=== PATIENT | male | born 1990 | race Caucasian/White ===

== ENCOUNTER 2017-02-22 11:23 | Emergency (ER) | payer OTHER ==
--- NOTE | 2017-02-22 11:38 | EDM.PDOC ---
ED HPI GENERAL MEDICAL PROBLEM - General Chief Complaint: Lower Extremity Injury/Pain Stated Complaint: LEFT ANKLE PAIN Time Seen by Provider: 02/22/17 11:37 Source of Information: Reports: Patient History Limitations: Reports: No Limitations - History of Present Illness INITIAL COMMENTS - FREE TEXT/NARRATIVE: HISTORY AND PHYSICAL: [] 26-year-old male presenting with left ankle pain History of Present Illness: [place] and felt his ankle pop. Presents with Segundo wraps to his ankle[] Review of Systems: As per history of present illness and below otherwise all systems reviewed and negative. Past medical history: As per history of present illness and as reviewed below otherwise noncontributory. Surgical history: As per history of present illness and as reviewed below otherwise noncontributory. Social history: No reported history of drug or alcohol abuse. Family history: As per history of present illness and as reviewed below otherwise noncontributory. Physical exam: Answer questions appropriately. He can in full sentences no shortness of breath. HEENT: Atraumatic, normocehpalic, pupils reactive, negative for conjunctival pallor or scleral icterus, mucous membranes moist, throat clear, neck supple, nontender, trachea midline. Lungs: Clear to auscultation, breath sounds equal bilaterally, chest non tender. Heart: S1S2, regular, negative for clicks, rubs, or JVD. Abdomen: Soft, nondistended, nontender. Negative for masses or hepatossplenmegaly. Negative for costovertebral tenderness. Pelvis: Stable nontender. Genitourinary: Deferred. Rectal: Deferred Extremities: Left ankle with erythema and edema tender to touch laterally along the malleolus. There is some mild ecchymosis to the lower medial ankle/ foot area Mild heat radiating, he did put ice on it this morning., negative for cords or calf pain. Neurovascular unremarkable. Neuro: Awake, alert, oriented. Cranial nerves II through XII unremarkable. Cerebellum unremarkable. Motor and sensory unremarkable throughout. Exam nonfocal. Discussed x-ray results with the patient and is present no fractures are noted Diagnostics: [X-ray left ankle] Therapeutics: [Cam Walker boot Crutches] Impression: [Ankle sprain with ligamental injury] Plan: [Discharged to home Minimal weightbearing for 24 hours Elevate and ice Ice to be on 20 minutes off 20 minutes a towel in between the ice in your foot Referral has been made to Dr. Carey Newell] Definitive disposition and diagnosis as appropriate pending reevaluation and review of above. left foot Pain Score (Numeric/FACES): 6 - Related Data Allergies Allergy/AdvReac Type Severity Reaction Status Date / Time No Known Allergies Allergy Verified 02/22/17 11:39 Home Meds: Home Meds . [No Known Home Meds] 02/22/17 [History] Review of Systems - Review of Systems Review Of Systems: ROS reveals no pertinent complaints other than HPI. ED EXAM, GENERAL - Physical Exam Exam: See Below (The dictation) Course - Vital Signs Last Recorded V/S: Last Vital Signs Temp 36.4 C 02/22/17 11:40 Pulse 95 02/22/17 11:40 Resp 18 02/22/17 11:40 BP 141/78 H 02/22/17 11:40 Pulse Ox 98 02/22/17 11:40 - Orders/Labs/Meds Orders: Active Orders 24 hr Category Date Time Status Ankle Min 3V Lt [CR] Stat Exams 02/22/17 11:37 Taken DME for Discharge [COMM] Stat Oth 02/22/17 12:38 Ordered Departure - Departure Time of Disposition: 12:40 Disposition: Home, Self-Care 01 Condition: Good Clinical Impression: Ankle sprain Qualifiers: Encounter type: initial encounter Involved ligament of ankle: unspecified ligament Laterality: left Qualified Code(s): S93.402A - Sprain of unspecified ligament of left ankle, initial encounter - Discharge Information Instructions: Ankle Sprain, [id number]-[id number], Crutch Use, Vgvj-ed-[id number] Referrals: PCP,None [Primary Care Provider] - Forms: ED Department Discharge Additional Instructions: The following information is given to patients seen in the emergency department who are being discharged to home. This information is to outline your options for follow-up care. We provide all patients seen in our emergency department with a follow-up referral. The need for follow-up, as well as the timing and circumstances, are variable depending upon the specifics of your emergency department visit. If you don't have a primary care physician on staff, we will provide you with a referral. We always advise you to contact your personal physician following an emergency department visit to inform them of the circumstance of the visit and for follow-up with them and/or the need for any referrals to a consulting specialist. The emergency department will also refer you to a specialist when appropriate. This referral assures that you have the opportunity for followup care with a specialist. All of these measure are taken in an effort to provide you with optimal care, which includes your followup. Under all circumstances we always encourage you to contact your private physician who remains a resource for coordinating your care. When calling for followup care, please make the office aware that this follow-up is from your recent emergency room visit. If for any reason you are refused follow-up, please contact the [facility] emergency department at and asked to speak to the emergency department charge nurse. Referral has been made for you follow-up with Dr. Carey Newell orthopedist [facility] [address], [address] [place] [address] Elevate and ice your ankle Ice on 20 minutes off 20 minutes with Tylenol in between to avoid freezing your skin Qcqw-ugq-ksrccar ibuprofen 3 tablets 3 times daily for reduction of edema and pain Minimal weight-bearing 24 hours then gradually add weight Use the crutches that you are issued Keep the Cam Walker boot on - My Orders Last 24 Hours: My Active Orders 02/22/17 11:37 Ankle Min 3V Lt [CR] Stat 02/22/17 12:38 DME for Discharge [COMM] Stat - Assessment/Plan Last 24 Hours: My Active Orders 02/22/17 11:37 Ankle Min 3V Lt [CR] Stat 02/22/17 12:38 DME for Discharge [COMM] Stat
--- NOTE | 2017-02-23 07:53 | CR ---
EXAM DATE: 02/22/17 PATIENT'S AGE: 26 Patient: ALBERT GARCIA Facility: [place], [place] Site . Site : 1990 Study: XRay Extremity Left ankle [id number]/[id number] 12:09:12 PM Ordering Physician: Doctor Elder Final Report: INDICATION: Left ankle injury. Technique: Three views of the left ankle. Findings: No acute fracture, dislocation, or other bony abnormality. The mortise is uniform. Soft tissue swelling about the lateral malleolus. Impression: Left ankle is negative for fracture. Lateral soft tissue swelling. Dictated by Jorge Brooks MD @ Feb 22 2017 12:24PM (Electronic Signature) Report Signed by Proxy. IS[facility]
== END 2017-02-22 12:47 | disposition home or self-care (01) ==
LOC: MW.ED 11:23
DX: S93.402A Sprain of unspecified ligament of left ankle, initial encounter (principal); X50.1XXA Overexertion from prolonged static or awkward postures, initial encounter
CPT/HCPCS: 73610-26-LT; 73610-LT; 99283

== ENCOUNTER 2021-08-08 18:35 | Emergency (ER) | payer OTHER ==
[2021-08-08 19:37] LABS: BLOOD UREA NITROGEN,BUN 16 mg/dL (7.0-18.0); CHLORIDE,CL 102 mmol/L (98-107); GLUCOSE RANDOM 98 mg/dL (74-106); POTASSIUM,K 3.9 mmol/L (3.5-5.1); SODIUM,NA 140 mmol/L (136-148)
== END 2021-08-08 20:15 | disposition home or self-care (01) ==
LOC: MW.ED 18:35
DX: R07.89 Other chest pain (principal); Z86.16 Personal history of COVID-19; Z72.0 Tobacco use
CPT/HCPCS: 36415; 71045; 71045-26; 80053; 84484; 85025; 93005; 93010; 99284; 99285-25